=== PATIENT | male | born 1965 | race Caucasian/White ===

== ENCOUNTER 2017-05-01 20:42 | Emergency (ER) | payer MEDICAID ==
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
[2017-05-01 21:41] LABS: BASO % 0.4 % (0-6); EOS % 6.2 % (0-6); GRAN % 43.7 % (47-80); HEMATOCRIT 38.3 % (42.0-52.0); LYMPH % 42.9 % (16-45); MEAN CELL VOLUME 89.1 fl (81-97); MEAN CORPUSCULAR HEMOGLOBIN 30.2 pg (27-33); MEAN CORPUSCULAR HGB CONC 33.9 g/dl (32-36); MEAN PLATELET VOLUME 9.6 fl (7.4-10.4); MONO % 6.8 % (0-9); PLATELET COUNT 263 K/uL (130-400); RED CELL DISTRIBUTION WIDTH 13.5 % (11.5-14.5); WHITE BLOOD COUNT W/O DIFF 5.5 K/uL (4.2-12.2)
[2017-05-01 21:51] LABS: ACETAMINOPHEN < 10.0 ug/mL (10.0-30.0); ALB/GLOB RATIO 1.4 (1.1-1.8); ALBUMIN 4.8 gm/dL (3.5-5.0); ALCOHOL 0.196 g/dL (0-0.010); ALKALINE PHOSPHATASE 122 U/L (38-126); ALT/SGPT 77 U/L (21-72); ANION GAP 17.5 (7-16); AST/SGOT 41 U/L (17-59); BILIRUBIN,TOTAL 0.74 mg/dL (0.2-1.3); BLOOD UREA NITROGEN 13 mg/dL (9-20); CARBON DIOXIDE 17.5 mmol/L (22-30); CREATININE 0.8 mg/dL (0.66-1.25); EST GLOMERULAR FILTRATION RATE > 60 ml/min; GLUCOSE,RANDOM 117 mg/dL (70-110); SALICYLATE < 1.0 mg/dL (2.8-20.0); TOTAL PROTEIN 8.2 gm/dL (6.3-8.2)
[2017-05-01] MEDS ORDERED: 0.9 % SODIUM CHLORIDE 1,000 ML BAG IV ONE (22:39)
[2017-05-01 23:31] LABS: URINE APPEARANCE CLEAR; URINE BILIRUBIN NEGATIVE (NEGATIVE); URINE BLOOD NEGATIVE (NEGATIVE); URINE COLOR YELLOW; URINE GLUCOSE (UA) NEGATIVE (NEGATIVE); URINE KETONE NEGATIVE (NEGATIVE); URINE LEUKOCYTE ESTERASE NEGATIVE (NEGATIVE); URINE NITRITE NEGATIVE (NEGATIVE); URINE PROTEIN NEGATIVE (NEGATIVE); URINE UROBILINOGEN 0.2 E.U./dL (0.20 - 1.00)
[2017-05-01 23:35] LABS: AMPHETAMINE SCREEN URINE NOT DETECTED; BARBITURATE SCREEN URINE NOT DETECTED; BENZODIAZEPINE SCREEN URINE NOT DETECTED; COCAINE SCREEN URINE NOT DETECTED; METHADONE SCREEN URINE NOT DETECTED; METHAMPHETAMINE SCREEN NOT DETECTED; OPIATE SCREEN URINE NOT DETECTED; OXYCODONE SCREEN URINE DETECTED; PHENCYCLIDINE SCREEN URINE NOT DETECTED; PROPOXYPHENE SCREEN URINE NOT DETECTED; THC SCREEN URINE NOT DETECTED; TRICYCLIC ANTIDEPRESSANT SCRN NOT DETECTED
== END 2017-05-02 00:07 | disposition home or self-care (01) ==
LOC: ER 20:42
DX: T40.2X1A Poisoning by other opioids, accidental (unintentional), initial encounter (principal); F10.229 Alcohol dependence with intoxication, unspecified; Y90.6 Blood alcohol level of 120-199 mg/100 ml; S01.00XD Unspecified open wound of scalp, subsequent encounter; S09.93XS Unspecified injury of face, sequela; T81.4XXS Infection following a procedure, sequela
CPT/HCPCS: 99284 ×2; 85025; 85651; 86140; 80048; 80053; 81003; 80305; G0480 ×3; 80320; 80329; J7030